=== PATIENT | male | born 1980 | race Caucasian/White ===

== ENCOUNTER 2021-11-03 19:58 | Emergency (ER) | payer OTHER ==
[~2021-11-03] VITALS: Ht 190.5 cm; Wt 90.6 kg
[2021-11-04 03:37] VITALS: BP 145/85
[2021-11-04] MEDS ORDERED: TETanus/Pertussis (Acell)/Diphther VAC/PF (Tdap-Adult) 0.5ml syringe IMVAC ONE (04:10)
[2021-11-04] MEDS ORDERED: LIDOcaine 1% 30ml preserv. free vial IJ ONE (04:10)
== END 2021-11-04 05:32 | disposition home or self-care (01) ==
LOC: ER 19:59
DX: S01.81XA Laceration without foreign body of other part of head, initial encounter (principal); S01.511A Laceration without foreign body of lip, initial encounter; Z88.1 Allergy status to other antibiotic agents; Z20.3 Contact with and (suspected) exposure to rabies; W45.8XXA Other foreign body or object entering through skin, initial encounter; Y93.89 Activity, other specified; Y92.89 Other specified places as the place of occurrence of the external cause; Y99.8 Other external cause status
CPT/HCPCS: 12052; 90471; 90715; 99283; 99284